=== PATIENT | female | born 1945 | race Caucasian/White ===

== ENCOUNTER → 2018-04-17 | Outpatient (CLI) | payer OTHER ==
[~2018-04-17] MED LIST: ARIP2 PO; ASPI81CH6 CHEW; CHOL10008 PO; CITA40TA4 PO; COMMODE 3-IN-11 MIS; ENOX30P SQ; FOLI1TAB4 PO; FURO1TAB60 PO; GABA100C4 PO; GABA600T PO; HUMI40KI SQ; HYDR-3288 PO; HYDR-3366 PO; MONT10TA2 PO; MORP1TAB25 PO; OMEP20TA93 PO; PRAV40TA2 PO; PRED5TAB PO; REST15CA PO; TIZA4CAP3 PO; TRAZ50TA12 PO; TREX15TA PO; WALKER WHEELS/F1 MIS
== END ==
LOC: CPRE 08:35
PROVIDERS: ATTEND Orthopaedic Surgery Sports Medicine
DX: M16.12 Unilateral primary osteoarthritis, left hip (principal)

== ENCOUNTER 2018-05-04 05:07 | Inpatient (IN) | payer OTHER, MEDICARE ==
[~2018-05-04] VITALS: Ht 152.4 cm; Wt 57.1 kg
[~2018-05-04 05:07] MED LIST changes: -ASPI81CH6 CHEW; -CITA40TA4 PO; -COMMODE 3-IN-11 MIS; -ENOX30P SQ; -FOLI1TAB4 PO; -GABA100C4 PO; -HYDR-3288 PO; -MORP1TAB25 PO; -REST15CA PO; -WALKER WHEELS/F1 MIS
[2018-05-04] MEDS ORDERED: POVIDONE IODINE 7.5% SCRUB 118 ML BOTTLE TOPICAL SCH (05:45)
[2018-05-04] MEDS ORDERED: ceFAZolin 2 GM PREMIX 50 ML IV SCH (05:45)
[2018-05-04] MEDS ORDERED: CHLORHEXIDINE GLUCONATE 4% SOLN 120 ML BTL TOPICAL SCH (05:45)
[2018-05-04] MEDS ORDERED: DEXAMETHASONE SOD PHOS 20 MG/5 ML VIAL IV PUSH ONE (05:45)
[2018-05-04] MEDS ORDERED: VANCOMYCIN 1 GM/200 ML INJ 200 ML IV SCH (05:45)
[2018-05-04] MEDS ORDERED: MORP1TAB25 PO (06:11)
[2018-05-04] MEDS ORDERED: ACETAMINOPHEN 1000 MG/100 ML 100 ML IV ONE (06:24)
[2018-05-04] MEDS ORDERED: GENTAMICIN SULFATE 80 MG/2 ML VIAL ONE (06:28)
[2018-05-04] MEDS ORDERED: ZOLPIDEM TARTRATE 5 MG TAB PO PRN (06:30)
[2018-05-04] MEDS ORDERED: Post-op Orders (for Pharmacy) XX ONE (06:30)
[2018-05-04] MEDS ORDERED: diphenhydrAMINE HCL 50 MG/ML VIAL IV PUSH PRN (06:30)
[2018-05-04] MEDS ORDERED: ACETAMINOPHEN/HYDROcodone 325 MG/7.5 MG TAB PO PRN (06:30)
[2018-05-04] MEDS ORDERED: MORPHINE SULFATE 4 MG/ML INJ IV PUSH PRN (06:30)
[2018-05-04] MEDS ORDERED: ASPI81CH6 CHEW (06:33)
[2018-05-04] MEDS ORDERED: EXPAREL PERI-ARTICULAR INJECTION (TOTAL VOL. 60 ML) P-ARTICULR SCH ×2 (07:00)
[2018-05-04] MEDS ORDERED: TRANEXAMIC ACID IV SCH (07:00)
[2018-05-04] MEDS ORDERED: TRANEXAMIC PERI-ARTICULAR 3,000 MG/NS 100 ML P-ARTICULR SCH ×2 (07:00)
[2018-05-04] MEDS ORDERED: SODIUM CHLORIDE 0.9% IV SCH (07:00)
[2018-05-04] MEDS ORDERED: ONDANSETRON ODT 4 MG TAB PO PRN (08:30)
[2018-05-04] MEDS ORDERED: *morphine SULFATE 4 MG/ML PERIprocedure ONLY ONE ×2 (08:46→09:02)
--- NOTE | 2018-05-04 08:49 | MP ---
cc: Horace Lizama MD DATE OF OPERATION: 05/04/2018 PREOPERATIVE DIAGNOSIS: Left hip osteoarthritis, left hip rheumatoid arthritis. POSTOPERATIVE DIAGNOSIS: Left hip osteoarthritis, left hip rheumatoid arthritis. PROCEDURE: Left total hip arthroplasty. SURGEON: Horace Lizama MD IRONWORKER MACHINE OPERATOR: ZE Hopkins. ANESTHESIA: General. ESTIMATED BLOOD LOSS: 200 mL. COMPLICATIONS: None. IMPLANTS USED: DePuy Corail size 12 press-fit standard offset femoral stem, size 48 Rowe Gription cup, 32 mm highly cross-linked polyethylene neutral liner, 32 mm cobalt chrome head, +5 neck. JUSTIFICATION: This patient is a 72-year-old female with history of severe osteoarthritis involving the left hip as well as rheumatoid arthritis. She has severe disabling pain with standing, walking, ambulation and weight-bearing activities and has failed extensive nonoperative conservative treatment over 3 months duration to include analgesic medication, anti-inflammatory medications, activity modification, home exercise program. The patient is not overweight. She has tried ambulatory assisted aids, as well as cortisone injections. X-ray of the left hip revealed severe arthritis with joint space narrowing, subchondral sclerosis, subchondral cyst, osteophyte formation with subluxation. The patient was counseled as to the risks, benefits, and alternatives to a total hip arthroplasty. The risks were discussed, which include, but are not limited to anesthesia, bleeding, infection, damage to nerves, blood vessels, pain, stiffness, fracture dislocations, leg length discrepancies blood clots, pulmonary embolism and even . The patient's pain is severe. She favored the benefits over the risks. She did wish to proceed with surgery. PROCEDURE IN DETAIL: Written consent was obtained. The patient was identified by name, taken to the operating room, placed supine on the operating room table. General anesthesia was administered, as well as 2 grams of IV Ancef and 1 gram of IV vancomycin. With the patient on the [place] table, the left and right feet were placed in the well-padded traction boots. All bony prominences and pressure points were padded. Left hip and left lower extremity prepped and draped using Isopropyl alcohol, Hibiclens solution and ChloraPrep solution. After a timeout was performed, a longitudinal incision was made over the anterolateral aspect of the left hip. The fascial layer was incised. Dissection was carried over the tensor fascia maggie, beneath rectus femoris to allow exposure of the anterior hip capsule. A capsulotomy incision was performed. The osteophytic femoral head and neck component was removed after resection with an oscillating saw. A 10 blade scalpel was used to excise the labrum. Sequential reaming began at a size 43 and was carried through to a size 48. Subsequently, a Rowe Gription cup was implanted in approximately 45 degrees of abduction and 10 degrees of anteversion. There was good purchase and fixation of the cup. A screw hole eliminator was placed. A single 30 mm screw was placed in the posterior superior quadrant for additional fixation of the cup. The neutral liner was placed and this was impacted and tested for stability. Attention was turned to the femur where the leg was externally rotated, extended and adducted. A box cutting osteotome was used to gain entrance into the intramedullary canal of the femur, followed by canal finder and sequential broaching to size 12. A calcar planer was used to plane the calcar. Trial head and neck combinations were evaluated and final components implanted with the current components. The leg could achieve external rotation up to 70 degrees and extension all the way down to the ground without evidence of anterior instability or impingement. Fluoroscopic imaging showed appropriate implantation of components. The soft tissue tension felt appropriate. The surgical wound was thoroughly irrigated with sterile saline pulse lavage antibiotic impregnated solution. The fascial layer was closed with #1 Vicryl suture, subcutaneous layer with 2-0 Vicryl sutures, and skin was closed with Dermabond. Sterile dressing applied. The patient tolerated the procedure well with no intraoperative complications noted. ZE Hopkins was present during the entire procedure to include patient positioning and the procedure itself. The medical necessity of a physician surgical assistant certified was indicated in this case due to the complexity of the procedure. He assisted with appropriate manipulation of the leg and also retraction of muscle, tendon, bone, and neurovascular structures. He assisted with preparation of bone and also implantation of the prosthetic replacement. MD JESSICA Byrd/MAGNO , 08:19 AM , 08:48 AM
[2018-05-04] MEDS ORDERED: DO NOT ADM ANY ANTICOAGULANT DRUGS PRN (09:00)
[2018-05-04] MEDS: PRAVASTATIN SOD 40 MG TAB PO SCH (09:00)
[2018-05-04] MEDS ORDERED: *RESP: ALBUTEROL 2.5 MG/3 ML NEB (PRN) PERIprocedural Use ONLY NEB ONE (09:45)
--- NOTE | 2018-05-04 09:53 | RADRPT ---
EXAM DATE: 05/04/2018 9:41 AM EDT AGE/SEX: 72 years / Female INDICATIONS: Left total hip replacement. CLINICAL DATA: This is the patient's initial encounter. Patient reports that signs and symptoms have been present for 1 day and indicates a pain score of Nonresponsive. MEDICAL/SURGICAL HISTORY: Non-responsive. Non-responsive. COMPARISON: No prior exams available for comparison. FINDINGS: Single intraoperative portable view was obtained. The patient is status post a total hip arthroplasty . Prosthesis is well-seated. Alignment is anatomic. A fracture is not appreciated. CONCLUSION: Anatomic alignment. Christophe Padilla MD FACR Electronically signed by: Christophe Padilla MD 05/04/2018 9:51 AM EDT
--- NOTE | 2018-05-04 10:04 | RADRPT ---
EXAM DATE: 05/04/2018 9:35 AM EDT AGE/SEX: 72 years / Female INDICATIONS: Post operative left hip. CLINICAL DATA: This is the patient's initial encounter. Patient reports that signs and symptoms have been present for 1 day and indicates a pain score of Nonresponsive. MEDICAL/SURGICAL HISTORY: None. . ORIF right hip. COMPARISON: No prior exams available for comparison. FINDINGS: The patient has total hip replacement seen bilaterally. There is air in the soft tissues around the l eft hip from the recent surgical intervention. This a normal postoperative finding. The prosthetic co mponents appear well placed. CONCLUSION: Successful left total hip arthroplasty. The prosthetic components appear well placed. The patient has a pre-existing right total hip replacement. Electronically signed by: Claus He MD 05/04/2018 10:03 AM EDT
--- NOTE | 2018-05-04 10:10 | PD.CONS ---
HPI Service [facility] Hospitalists Consult Requested By Dr. Lizama - Orthopedic service Reason for Consult Medical management Primary Care Physician Lionel Nair MD Diagnoses: History of Present Illness This is a 72yo female with a PMHX significant for immunocompromised state on immunosuppressives for treatment of RA, COPD/emphysema, HLD, GERD and severe osteoarthritis of the left hip who tried and failed numerous attempts at conservative therapy and underwent an elective left total hip arthroplasty by Dr. Lizama today. Hospitalist services have been consulted to assist with medical management. Patient seen and examined. Patient complaining of left hip pain. She denies any other complaints at this time. She states she has been in her usual state of health. She ambulates unassisted in her home but uses a cane to aide with community ambulation. She no longer drives secondary to her rheumatoid disability. She is and lives with her daughter. She denies any recent illness, fever or chills. She denies any chest pain or dyspnea. She denies any nausea, vomiting or abdominal pain. She denies any dysuria, diarrhea or constipation. Review of Systems Except as stated in HPI: all other systems reviewed are Neg Past Family Social History Allergies: Uncoded Allergies: ENBREL (Allergy, Severe, Rash, 09/23/16) Past Medical History Rheumatoid arthritis on immunosuppressive treatment COPD/emphysema Osteoarthritis HLD GERD Past Surgical History Right MIKE 09/23/16 Right TKR with revision Cholecystectomy Hysterectomy Appendectomy Back surgery Hernia repair Right ankle fracture repair Reported Medications Morphine ER (Morphine Sulfate) 30 Mg Tab 30 Mg PO BID Trexall (Methotrexate) 15 Mg Tab 25 Mg PO Q7D Trazodone (Trazodone HCl) 50 Mg Tab 50 Mg PO HS Omeprazole 20 Mg Tab 20 Mg PO DAILY Vitamin D3 (Cholecalciferol) 1,000 Unit Cap 2,000 Units PO DAILY Gabapentin 600 Mg Tab 600 Mg PO TID Humira 2-Pack Inj (Adalimumab 2-Pack Inj) 40 Mg/0.8 Ml Syr 40 Mg SQ Q7D Pravastatin 40 Mg Tab 40 Mg PO DAILY Prednisone 5 Mg Tab 5 Mg PO DAILY Singulair (Montelukast Sodium) 10 Mg Tab 10 Mg PO HS [place] (Hydrocodone-Acetaminophen) 10-325 Mg Tab 1 Tab PO Q6H PRN Lasix (Furosemide) 40 Mg Tab 40 Mg PO DAILY Abilify (Aripiprazole) 2 Mg Tab 2.5 Mg PO HS Active Ordered Medications Current Medications Medications (Trade) Dose Ordered Sig/[place] Route Start Time Stop Time Status Last Admin (Betadine 7.5% Scrub) 1 applic ONCE TOPICAL 05/04/18 05:45 05/07/18 05:44 (Hibiclens 4% Top Soln) 1 applic ONCE TOPICAL 05/04/18 05:45 05/07/18 05:44 05/04/18 06:20 Cefazolin Sodium/ Dextrose 50 ml @ 100 mls/hr SIGNAL HELPER IV 05/04/18 05:45 05/05/18 05:44 05/04/18 06:38 Vancomycin/Sodium Chloride 200 ml @ 250 mls/hr SIGNAL HELPER IV 05/04/18 05:45 05/05/18 05:44 05/04/18 06:42 Tranexamic Acid 791 mg/Sodium Chloride 107.91 ml @ 200 mls/ hr ONCE IV 05/04/18 07:00 05/04/18 13:00 05/04/18 07:10 Bupivacaine Liposome 20 ml/ Sodium Chloride 60 ml @ 120 mls/hr ONCE P-ARTICULR 05/04/18 07:00 05/04/18 13:00 05/04/18 07:29 Tranexamic Acid 3000 mg/Sodium Chloride 130 ml @ 260 mls/hr ONCE P-ARTICULR 05/04/18 07:00 05/04/18 13:00 05/04/18 07:29 (Abilify) 2.5 mg HS PO 05/04/18 21:00 (Lasix) 40 mg DAILY PO 05/04/18 09:00 (Neurontin) 600 mg TID PO 05/04/18 09:00 (Singulair) 10 mg HS PO 05/04/18 21:00 (Oramorph Sr) 30 mg BID PO 05/04/18 09:00 (Pravachol) 40 mg DAILY PO 05/04/18 09:00 (Desyrel) 50 mg HS PO 05/04/18 21:00 (Protonix) 20 mg DAILY PO 05/04/18 09:00 Sodium Chloride 1,000 ml @ 100 mls/hr Q10H IV 05/04/18 06:30 Cefazolin Sodium 1000 mg/Sodium Chloride 110 ml @ 220 mls/hr Q6H IV 05/04/18 12:00 05/05/18 00:29 (Lovenox Inj) 30 mg Q24H SQ 05/04/18 06:30 UNV (Morphine Inj) 3 mg Q3H PRN IV PUSH 05/04/18 06:30 ([place] 7.5-325 Mg) 1 tab Q4H PRN PO 05/04/18 06:30 ([place] 7.5-325 Mg) 2 tab Q4H PRN PO 05/04/18 06:30 (Theragran M Tab) 1 tab BID PO 05/05/18 21:00 07/04/18 20:59 (Zofran Odt) 4 mg Q6H PRN PO 05/04/18 08:30 (Colace) 100 mg BID PO 05/05/18 21:00 (Ambien) 5 mg HS PRN PO 05/04/18 06:30 (Benadryl Inj) 25 mg Q6H PRN IV PUSH 05/04/18 06:30 ([facility] Nursing Information) ALL NURSING DEPARTME... UNSCH PRN .XX 05/04/18 09:00 05/05/18 08:59 Family History Patient is adopted and [facility] Social History Patient reports hx of tobacco use of 1/2 ppd x 65yrs. She tried to quit recently but resumed two months ago due to increased life stressors. She reports rare EtOH use. She denies any illicit drug use. Physical Exam Vital Signs Vital Signs Date Time Temp Pulse Resp B/P (MAP) Pulse Ox O2 Delivery O2 Flow Rate FiO2 05/04/18 09:15 66 15 159/68 (98) 94 Nasal Cannula 3 05/04/18 09:00 59 15 151/70 (97) 94 Nasal Cannula 3 05/04/18 08:45 69 15 155/74 (101) 96 Nasal Cannula 3 05/04/18 08:36 97.9 81 14 139/62 (87) 97 Nasal Cannula 3 05/04/18 06:00 98.8 78 24 170/67 (101) 96 Physical Exam GENERAL: This is a well-nourished, well-developed female patient, in no apparent distress. Awake and alert. SKIN: No rashes, ecchymoses or lesions. Cool and dry. HEAD: Atraumatic. Normocephalic. No temporal or scalp tenderness. EYES: Pupils equal round and reactive. Extraocular motions intact. No scleral icterus. No injection or drainage. ENT: Nose without bleeding or purulent drainage. Throat without erythema, tonsillar hypertrophy or exudate. Uvula midline. Airway patent. NECK: Trachea midline. No lymphadenopathy. Supple, nontender, no meningeal signs. CARDIOVASCULAR: Regular rate and rhythm without murmurs, gallops, or rubs. RESPIRATORY: Fair air entry. Clear to auscultation. Breath sounds equal bilaterally. No wheezes, rales, or rhonchi. GASTROINTESTINAL: Abdomen soft, non-tender, nondistended. No hepato-splenomegaly , or palpable masses. No guarding. MUSCULOSKELETAL: Extremities without cyanosis, or edema. s/p Left MIKE, incision covered with postop dressing that is C/D/I. +rheumatoid deformity noted bilateral hands. NEUROLOGICAL: Awake and alert. Cranial nerves II through XII grossly intact. Motor and sensory grossly within normal limits. No focal neurologic findings appreciated. Normal speech. PSYCHIATRIC: Calm and cooperative with exam. Normal affect and mood. Assessment and Plan Assessment and Plan 72yo female with a PMHX significant for immunocompromised state on immunosuppressives for treatment of RA, COPD/emphysema, HLD, GERD and severe osteoarthritis of the left hip who tried and failed numerous attempts at conservative therapy and underwent an elective left total hip arthroplasty by Dr. Lizama today. Hospitalist services have been consulted to assist with medical management. Severe OA left hip, failed efforts at conservative treatment, s/p elective left MIKE by Dr. Lizama -management per orthopedic service -pain management per Ortho with bowel regimen -monitor wound for healing -monitor CBC for postop anemia of acute blood loss -PT eval/tx per Dr. Lizama RA, immunocompromised on prednisone, Methotrexate and Humira Chronic pain -all immunosuppressive therapies on hold per Dr. Lizama -continue on home pain medication Morphine ER 30mg BID -monitor COPD/emphysema, not in acute exacerbation Ongoing tobaccoism -discussed smoking cessation, nicotine patch offered but patient declined -Duonebs prn -continue on home dose of Singulair -continue supplemental oxygen to maintain O2 sats>92% -monitor respiratory status Neuropathy -continue on home dose of Gabapentin HLD -continue on statin therapy GERD -continue on PPI DVT prophylaxis -Lovenox 30mg sq per Ortho Thank you very kindly for this consultation and will continue to follow along with you. Discussed Condition With nursing staff, patient, Nora Mcnair May 04, 2018 10:10
[2018-05-04] MEDS: SODIUM CHLOR 0.9% 1000 ML INJ 1,000 ML IV SCH ×2 (10:14→15:23)
[2018-05-04 10:25] VITALS: BP 143/64; PULSE 88; RESP 15; TEMP 96.4; O2SAT 95
[2018-05-04] MEDS: PANTOPRAZOLE SOD 20 MG DELAYED RELEASE TAB PO SCH (10:37)
[2018-05-04] MEDS: FUROSEMIDE 40 MG TAB PO SCH (10:37)
[2018-05-04] MEDS: GABAPENTIN 300 MG CAP PO SCH ×3 (10:38→17:39)
[2018-05-04] MEDS: MORPHINE SULFATE 30 MG CONTROLLED RELEASE TAB PO SCH ×2 (10:38→20:10)
[2018-05-04] MEDS ORDERED: LACTATED RINGER'S 1000 ML INJ 1,000 ML IV ONE (10:41)
[2018-05-04] MEDS ORDERED: LIDOCAINE HCL 1% PF 5 ML SYRINGE OTHER ONE (10:41)
[2018-05-04] MEDS ORDERED: ePHEDrine/NS 25 MG/5 ML SYRINGE IV ONE (10:41)
[2018-05-04] MEDS ORDERED: GLYCOPYRROLATE 1 MG/5 ML SYRINGE IV PUSH ONE (10:41)
[2018-05-04] MEDS ORDERED: DEXAMETHASONE SOD PHOS 4 MG/ML VIAL IV ONE (10:41)
[2018-05-04] MEDS ORDERED: ONDANSETRON HCL 4 MG/2 ML VIAL IV PUSH ONE (10:41)
[2018-05-04] MEDS ORDERED: ROCURONIUM INJ 50 MG/5 ML SYRINGE IV PUSH ONE (10:41)
[2018-05-04] MEDS ORDERED: PHENYLEPH/NS 1000 MCG/10 ML SYR IV ONE (10:41)
[2018-05-04] MEDS ORDERED: NEOSTIGMINE 5 MG/5 ML SYRINGE IV PUSH ONE (10:41)
[2018-05-04] MEDS ORDERED: PROPOFOL 200 MG/20 ML AMP IV ONE (10:41)
[2018-05-04] MEDS ORDERED: RESP: ALBUTEROL 2.5 MG/IPRATROPIUM 0.5 MG NEB (PRN) NEB (11:00)
[2018-05-04 11:35] VITALS: O2SAT 92
[2018-05-04] MEDS: CEFAZOLIN INJ 1,000 MG in SODIUM CHLORIDE 0.9% INJ 100 ML IV SCH ×2 (12:38→17:39)
[2018-05-04] MEDS: ACETAMINOPHEN/HYDROcodone 325 MG/7.5 MG TAB PO PRN ×2 (12:38→17:39)
[2018-05-04 15:24] VITALS: O2SAT 92
[2018-05-04 16:00] VITALS: BP 117/61; PULSE 87; RESP 12; TEMP 97.5; O2SAT 93
[2018-05-04 19:20] VITALS: BP 96/55; PULSE 82; RESP 18; TEMP 98.5; O2SAT 95
[2018-05-04] MEDS ORDERED: ENOXAPARIN SODIUM 30 MG/0.3 ML SYRINGE SQ SCH (20:00)
[2018-05-04] MEDS ORDERED: traZODone HCL 50 MG TAB PO SCH (21:00)
[2018-05-04] MEDS ORDERED: MONTELUKAST SODIUM 10 MG TAB PO SCH (21:00)
[2018-05-04] MEDS ORDERED: ARIPiprazole 5 MG TAB PO SCH (21:00)
[2018-05-05] VITALS: BP 106/53; PULSE 99; RESP 18; TEMP 97.5; O2SAT 95
[2018-05-05] MEDS: CEFAZOLIN INJ 1,000 MG in SODIUM CHLORIDE 0.9% INJ 100 ML IV SCH (00:10)
[2018-05-05] MEDS: SODIUM CHLOR 0.9% 1000 ML INJ 1,000 ML IV SCH (00:48)
[2018-05-05 03:50] VITALS: BP 99/54; PULSE 62; RESP 18; TEMP 98.3; O2SAT 95
[2018-05-05 06:56] LABS: HEMATOCRIT 37.7 % (35.0-46.0); HEMOGLOBIN 12.2 GM/DL (11.6-15.3); MEAN CELL VOLUME 91.3 FL (80.0-100.0); MEAN CORPUSCULAR HEMOGLOBIN 29.7 PG (27.0-34.0); MEAN CORPUSCULAR HGB CONC 32.5 % (32.0-36.0); MEAN PLATELET VOLUME 8.1 FL (7.0-11.0); PLATELET COUNT 224 TH/MM3 (150-450); RED BLOOD COUNT 4.13 MIL/MM3 (4.00-5.30); RED CELL DISTRIBUTION WIDTH 15.5 % (11.6-17.2); WHITE BLOOD COUNT 8.2 TH/MM3 (4.0-11.0)
[2018-05-05 07:24] LABS: BICARBONATE 29.6 MEQ/L (21.0-32.0); CALCIUM 8.3 MG/DL (8.5-10.1); CREATININE 0.75 MG/DL (0.50-1.00)
[2018-05-05 08:00] VITALS: BP 95/51; PULSE 81; RESP 17; TEMP 97.8; O2SAT 94
[2018-05-05] MEDS: PRAVASTATIN SOD 40 MG TAB PO SCH (08:46)
[2018-05-05] MEDS: PANTOPRAZOLE SOD 20 MG DELAYED RELEASE TAB PO SCH (08:47)
[2018-05-05] MEDS: GABAPENTIN 300 MG CAP PO SCH (08:47)
[2018-05-05] MEDS: MORPHINE SULFATE 30 MG CONTROLLED RELEASE TAB PO SCH (08:47)
[2018-05-05] MEDS: FUROSEMIDE 40 MG TAB PO SCH (08:47)
--- NOTE | 2018-05-05 08:57 | PD.ORT.PN ---
Subjective Post Op Day #: 1 Subjective Remarks minimal pain Objective Vitals Vital Signs Date Time Temp Pulse Resp B/P (MAP) Pulse Ox O2 Delivery O2 Flow Rate FiO2 05/05/18 08:00 97.8 81 17 95/51 (66) 94 05/05/18 03:50 98.3 62 18 99/54 (69) 95 05/05/18 00:00 97.5 99 18 106/53 (70) 95 05/04/18 21:54 Room Air 05/04/18 20:40 18 05/04/18 19:20 98.5 82 18 96/55 (69) 95 05/04/18 16:00 97.5 87 12 117/61 (79) 93 05/04/18 15:24 92 21 05/04/18 11:35 92 Nasal Cannula 2.00 05/04/18 10:25 96.4 88 15 143/64 (90) 95 05/04/18 10:09 97.8 64 16 133/57 (82) 99 Nasal Cannula 4 05/04/18 09:45 53 16 132/63 (86) 92 Nasal Cannula 4 05/04/18 09:30 62 16 144/60 (88) 92 Nasal Cannula 3 05/04/18 09:15 66 15 159/68 (98) 94 Nasal Cannula 3 05/04/18 09:00 59 15 151/70 (97) 94 Nasal Cannula 3 I/O 05/04/18 05/04/18 05/04/18 05/05/18 05/05/18 05/05/18 07:00 15:00 23:00 07:00 15:00 23:00 Intake Total 1900 ml 720 ml 730 ml Output Total 700 ml Balance 1200 ml 720 ml 730 ml Intake Oral 720 ml 620 ml IV Total 100 ml 110 ml Other 1800 ml Output Urine Total 400 ml Estimated Blood Loss 300 ml # Voids 2 3 Result Diagram: 05/05/18 0520 05/05/18 0520 Objective Remarks in bed, nad dressing c/d/i neg homans nvi Assessment & Plan Ortho Post Op Day #: 1 Problem List: Assessment and Plan s/p L MIKE wbat ok to maintain dressing unless saturated lovenox, d/c on [id number] PT d/c planning home with [facility] and pt - cleared today if does well in PT f/up dr. sifuentes 2 weeks Horace Contreras May 05, 2018 08:57
--- NOTE | 2018-05-05 08:59 | HHI.DCPOC ---
Discharge Care Plan Diagnosis: (1) Primary localized osteoarthrosis, pelvic region and thigh Your Health Problems Are: Difficulty with ADL Goals to Promote Your Health * To prevent worsening of your condition and complications * To maintain your health at the optimal level Directions to Meet Your Goals Take your medications as prescribed Follow your dietary instruction Follow activity as directed Keep your appointments as scheduled Take your immunizations and boosters as scheduled If your symptoms worsen call your PCP, if no PCP go to Urgent Care Center or Emergency Room Smoking is Dangerous to Your Health. Avoid second hand smoke Call the 24-hour hour crisis hotline for domestic abuse at Horace Contreras May 05, 2018 08:59
--- NOTE | 2018-05-05 09:00 | HHI.FF ---
Face to Face Verification Diagnosis: (1) Primary localized osteoarthrosis, pelvic region and thigh Physical Therapy Gait training, Safety evaluation, Transfer training, bed to chair Hip: Total hip, Protocol: Left, Progress to weight bearing Left LE Weight Bearing: WB as tolerated Nursing RN: 3 days/week x 2 weeks Nursing: Dressing changes Dressing Changes: Daily dressing change I have seen patient Ethel Ashton on 05/05/18. My clinical findings support the need for the requested home health care services because: Limited ability to care for self High risk of falls I certify that my clinical findings support that this patient is homebound because: Post-op weakness Unsteady gait/balance Horace Contreras May 05, 2018 08:59
[2018-05-05 10:11] VITALS: RESP 16
[2018-05-05] MEDS ORDERED: MULTIVITAMINS/MINERALS THERAPEUTIC TAB PO SCH (21:00)
[2018-05-05] MEDS ORDERED: DOCUSATE SODIUM 100 MG CAP PO SCH (21:00)
== END 2018-05-05 10:42 | disposition home health service (06) | DRG 470 ==
LOC: HSDI 05:07 → N06A 10:24
PROVIDERS: ADMIT Orthopaedic Surgery Sports Medicine; ATTEND Orthopaedic Surgery Sports Medicine
PROC: 0SRB02A Replacement of Left Hip Joint with Metal on Polyethylene Synthetic Substitute, Uncemented, Open Approach (ICD-10-PCS; principal; 2018-05-04 06:47)
DX: M16.12 Unilateral primary osteoarthritis, left hip (principal); G62.9 Polyneuropathy, unspecified; J44.9 Chronic obstructive pulmonary disease, unspecified; M06.9 Rheumatoid arthritis, unspecified; G89.29 Other chronic pain; K21.9 Gastro-esophageal reflux disease without esophagitis; E78.5 Hyperlipidemia, unspecified; F17.210 Nicotine dependence, cigarettes, uncomplicated; Z79.899 Other long term (current) drug therapy
CPT/HCPCS: 73502; 76000; 80048; 85027; 86850; 86900; 86901; 94150; C1776; C9290; J0131; J0690; J1100; J1580; J1650; J2270; J2370; J2405; J2710; J3010; J3370; J7030; J7120; J7613